=== PATIENT | female | born 1965 | race African-American/Black ===

== ENCOUNTER → 2017-04-06 | Outpatient (CLI) | payer OTHER ==
[~2017-04-06] MED LIST: AMLODIPINE BESYL5 MG PO; HYDROCHLOROTH12.5 M1 PO; LIPITOR20 MG PO; VALACYCLOVIR1000 MG PO; VOLTAREN75 MG PO
== END | disposition home or self-care (01) ==
LOC: CBAR 08:33
DX: Z01.812 Encounter for preprocedural laboratory examination (principal); E66.01 Morbid (severe) obesity due to excess calories
CPT/HCPCS: 36415; 84443; 86677; G0463

== ENCOUNTER → 2017-04-20 | Outpatient (CLI) | payer OTHER ==
--- NOTE | ~2017-04-20 | EKG ---
PATIENT: MERCEDES RAIN UNIT #: [id number] Ventricular Rate: 67 BPM Atrial Rate: 67 BPM P-R Interval: 144 ms QRS Duration: 86 ms Q-T Interval: 410 ms QTC Calculation(Bezet): 433 ms P Panther Burn: 23 degrees Calculated R Panther Burn: 33 degrees Calculated T Panther Burn: 30 degrees Diagnosis Line: Normal sinus rhythm with sinus arrhythmia Diagnosis Line: Normal ECG Diagnosis Line: No previous ECGs available Diagnosis Line: Confirmed by SHARRON LAWLER MD ([id number]) on 04/20/2017 Diagnosis Line: 5:51:32 PM INTERPRETING MD: NURIS HARPER
--- NOTE | ~2017-04-20 | CR97 ---
[facility] A Service of [facility] & [facility] / [facility] RADIOLOGY TEXT RESULTS PATIENT: MERCEDES RAIN LOCATION: [facility] : [birth year] UNIT #: [id number] AGE: [address]: Tree Wynn MD SEX: F ORDER DR: [id number] [facility] [address] [place], [place] [address] [id number] O MR#: [id number] Acc #: [id number] NAME: MERCEDES RAIN : 1965 SEX: F STUDY DATE/TIME: 04/20/2017 8:36 UNIT: [facility] ROOM: STUDY DESCRIPTION: CR Esophagram Attending Physician: Tree Wynn M.D. Referring Physician: Tree Wynn M.D. Ordering Physician: Tree Wynn M.D. Primary Care Physician: Jerome Quintero M.D. MEDICAL IMAGING REPORT This report is preliminary unless electronic signature is present EXAM Esophagram, 04/20/2017 CLINICAL HISTORY Planned Lap-Band PROCEDURE Study performed with 0.4 minutes of fluoroscopy and 7 spot images. FINDINGS The esophagus is normal in caliber. There is no mass or ulceration or stricture. There is no hiatal hernia. Peristalsis is normal. IMPRESSION Normal esophagram. Dictated by... Royce Rodriguez M.D. THIS IS AN ELECTRONICALLY VERIFIED REPORT Royce Rodriguez M.D. at 04/20/2017 4:04 PM ALEN/linden TD: 04/20/2017 10:54 JOB #: [id number] MEDICAL IMAGING REPORT Page 1 of 1 COPY
--- NOTE | ~2017-04-20 | CR63 ---
[facility] A Service of [facility] & [facility] RADIOLOGY TEXT RESULTS PATIENT: MERCEDES RAIN LOCATION: [facility] : 69 UNIT #: [id number] AGE: [address]: Tree Wynn MD SEX: F ORDER DR: [id number] [facility] [address] [place], [place] [address] [id number] O MR#: [id number] Acc #: [id number] NAME: MERCEDES RAIN : 1965 SEX: F STUDY DATE/TIME: 04/20/2017 8:12 UNIT: [facility] ROOM: STUDY DESCRIPTION: CR Chest 2 View Attending Physician: Tree Wynn M.D. Referring Physician: Tree Wynn M.D. Ordering Physician: Tree Wynn M.D. Primary Care Physician: Jerome Quintero M.D. MEDICAL IMAGING REPORT This report is preliminary unless electronic signature is present EXAM PA and lateral chest INDICATIONS Preop chest x-ray for lap band surgery. No comparisons. FINDINGS Lungs are well expanded and clear. Heart size normal. Visualized osseous structures are unremarkable. IMPRESSION Negative chest. Dictated by... Alec Cooper M.D. THIS IS AN ELECTRONICALLY VERIFIED REPORT Alec Cooper M.D. at 04/24/2017 7:20 AM SAMIR/faiza TD: 04/20/2017 09:52 JOB #: [id number] MEDICAL IMAGING REPORT Page 1 of 1 COPY
[2017-04-20 09:17] LABS: HEMOGLOBIN 13.4 gm/dL (12.0-16.0); MEAN CELL VOLUME 85.9 FL (83-96); MEAN CORPUSCULAR HEMOGLOBIN 28.7 PG (28-34); MEAN CORPUSCULAR HGB CONC 33.4 g/dL (30-36); MEAN PLATELET VOLUME 7.7 FL (6.5-11.5); RED BLOOD COUNT 4.66 X10e (3.90-5.30); RED CELL DISTRIBUTION WIDTH 14.4 % (11.0-15.5); WHITE BLOOD COUNT 7.1 X10e3 (4.0-10.5)
[2017-04-20 09:54] LABS: ALBUMIN SERUM 3.8 g/dL (3.5-5.0); BILIRUBIN,TOTAL 0.8 mg/dL (0.2-2.0); CALCIUM SERUM 9.5 mg/dL (8.4-10.2); CREATININE SERUM 0.5 mg/dL (0.6-1.4); GLOM FILT RATE Estimated 131.7 mL/min (>60); POTASSIUM 3.5 mmol/L (3.5-5.1); PROTEIN TOTAL SERUM 7.3 g/dL (6.0-8.3)
== END | disposition home or self-care (01) ==
LOC: CRAD 07:51 → CAMB 09:30
PROVIDERS: Surgery
DX: Z01.818 Encounter for other preprocedural examination (principal); I49.9 Cardiac arrhythmia, unspecified
CPT/HCPCS: 36415; 71020; 74220; 80053; 80061; 84443; 85027; 93005